=== PATIENT | male | born 1960 | race Caucasian/White ===

== ENCOUNTER 2017-05-07 14:00 | Emergency (ER) | payer OTHER ==
[~2017-05-07] VITALS: Ht 167.6 cm; Wt 99.8 kg
[2017-05-07 14:06] VITALS: BP 164/104
== END 2017-05-07 14:45 | disposition home or self-care (01) ==
LOC: ER 14:04
DX: B02.9 Zoster without complications (principal); F32.9 Major depressive disorder, single episode, unspecified; I10 Essential (primary) hypertension; F17.210 Nicotine dependence, cigarettes, uncomplicated
CPT/HCPCS: A4606; Z7610